=== PATIENT | female | born 1995 | race Hispanic/Latino ===

== ENCOUNTER 2020-05-14 23:53 | Emergency (ER) | payer OTHER ==
[2020-05-15 15:06] LABS: SARS-CoV-2 MS2 Positive; SARS-CoV-2 N Gene Positive; SARS-CoV-2 S Gene Positive; SARS-CoV-2 orf1ab Positive
== END 2020-05-15 00:57 | disposition home or self-care (01) ==
LOC: ERS 23:53
DX: U07.1 COVID-19 (principal); J06.9 Acute upper respiratory infection, unspecified
CPT/HCPCS: 87635; 99283; U0003

== ENCOUNTER 2020-10-18 08:54 | Outpatient (CLI) | payer OTHER ==
--- NOTE | 2020-10-18 09:35 | ULT ---
Complete obstetrical ultrasound INDICATION: Evaluate anatomy and cervical length TECHNIQUE: Grayscale, M-mode Doppler and Doppler images were obtained of the abdomen and pelvis to ev aluate the patient's known . COMPARISON: None. FINDINGS: Number of gestations: Single. Presentation: Cephalic. Placental location: Posterior; small suspected placental tang is seen along the inferior margin of th e placenta measuring 1.3 x 1.7 cm. Previa: No evidence for previa. Cervical length: 3.3 cm without evidence of funneling. ARISTEO: 9.21 cm. heart rate: 146 bpm. Biparietal diameter: 4.75cm, 20 weeks and 3 days, Not calculated.. Head circumference: 17.70 cm, 20 weeks and 2 days, Not calculated. Abdominal circumference: 15.26 cm, 20 weeks and 4 days, Not calculated. Femoral length: 3.32cm, 20 weeks and 3 days, Not calculated. Estimated weight: 352 g +/- 51g (0 lbs. 12 oz. +/- 2 ounces), 8th percentile SURVEY: head: Normal appearing. Cerebellum: Normal appearing. Cisterna magna: Normal appearing. Lateral ventricles: Normal appearing. 4 chamber heart: Normal appearing.. Stomach: Normal appearing. Kidneys: Normal appearing. Cord insertion: Normal appearing. Bladder: Normal appearing. Spine: Normal appearing. Lips and nose: Normal appearing. Extremities: Normal appearing. Three-vessel CORD: Normal appearing. The average gestational age by ultrasound is 20 weeks and 3 dayswith estimated due date of March 04. The estimated dates by clinical data is 21 weeks and 3 dayswith estimated due date of February 17, 2021. IMPRESSION: 1. Single live intrauterine gestation with size and dates as above. 2. survey appeared within normal limits. 3. Small for gestational age. 4. ARISTEO of 9.21 cm. 5. Small suspected placental tang along the inferior margin of the placenta.
== END 2020-10-18 08:55 | disposition home or self-care (01) ==
LOC: BICULT 08:54
PROVIDERS: ATTEND Family Medicine
DX: O09.292 Supervision of pregnancy with other poor reproductive or obstetric history, second trimester (principal); O36.5920 Maternal care for other known or suspected poor fetal growth, second trimester, not applicable or unspecified; Z3A.20 20 weeks gestation of pregnancy
CPT/HCPCS: 76805